=== PATIENT | female | born 1945 | race Caucasian/White ===

== ENCOUNTER 2022-05-30 14:42 | Emergency (ER) | payer MEDICARE ==
[~2022-05-30] VITALS: Ht 175.3 cm; Wt 70.3 kg
[~2022-05-30 14:42] MED LIST: ATORVASTATIN CA10 MG PO; DIOVAN80 MG PO; LEVOTHYROXINE100 MC1 IV; MELOXICAM15 MG PO
[2022-05-30] MEDS ORDERED: HYDRALAZINE HCL 20 MG/ML VIAL IV ONE (15:45)
[2022-05-30 16:36] LABS: BASOPHILS # (AUTO) 0.1 (0.0-0.1); BASOPHILS % 0.8 % (0.0-1.0); EOSINOPHILS # (AUTO) 0.1 (0.0-0.4); EOSINOPHILS % 1.6 % (0.0-6.0); HEMATOCRIT 41.2 % (34.2-44.1); HEMOGLOBIN 14.2 g/dL (12.0-16.0); LYMPHOCYTES # (AUTO) 2.2 (1.0-3.2); LYMPHOCYTES % 35.3 % (18.0-39.1); MEAN CORPUSCULAR HEMOGLOBIN 32.7 pg (28-32); MEAN CORPUSCULAR HGB CONC 34.5 g/dL (31-35); MEAN CORPUSCULAR VOLUME 94.9 fL (81-99); MONOCYTES # (AUTO) 0.8 (0.2-0.8); MONOCYTES % 12.2 % (4.4-11.3); NEUTROPHILS # (AUTO) 3.1 (2.1-6.9); NEUTROPHILS % 49.9 % (38.7-80.0); PLATELET COUNT 306 x10e3/uL (140-360); RED BLOOD COUNT 4.34 x10e6/uL (3.6-5.1); RED CELL DISTRIBUTION WIDTH 11.5 % (11.7-14.4)
[2022-05-30 16:57] LABS: ALBUMIN/GLOBULIN RATIO 1.2 (0.8-2.0); ANION GAP 16.8 mmol/L (8-16); CALCIUM 9.5 mg/dL (8.4-10.2); CREATININE, SERUM 0.81 mg/dL (0.57-1.11); POTASSIUM 3.8 mmol/L (3.5-5.1)
[2022-05-30 17:40] VITALS: BP 149/100
== END 2022-05-30 18:20 | disposition home or self-care (01) ==
LOC: ER 14:51
DX: R42 Dizziness and giddiness (principal); I10 Essential (primary) hypertension; E78.5 Hyperlipidemia, unspecified; E03.9 Hypothyroidism, unspecified; E78.00 Pure hypercholesterolemia, unspecified; R94.31 Abnormal electrocardiogram [ECG] [EKG]
CPT/HCPCS: 36415; 70450; 71045; 80053; 84484; 85025; 93005; 99284; J0360

== ENCOUNTER → 2022-08-05 | Outpatient (CLI) | payer MEDICARE ==
[~2022-08-05] MED LIST changes: +IOPAMIDOL 370 MG/ML 100 ML INFUS..BTL INJ ONE; +METOPROLOL TARTRATE INJ 1 MG/ML VIAL ONE; +NITROGLYCERIN 0.4 MG SUBL ONE; +SODIUM CHLORIDE 0.9% 100 ML ONE
[2022-08-05 08:33] LABS: CREATININE, SERUM 0.78 mg/dL (0.57-1.11)
== END ==
LOC: CT 07:39
PROVIDERS: ATTEND Internal Medicine Cardiovascular Disease
DX: I20.8 Other forms of angina pectoris (principal)
CPT/HCPCS: 36415; 75574; 82565; 84520; J7050; Q9967

== ENCOUNTER 2023-08-13 10:27 | Outpatient (RCR) | payer MEDICARE ==
[~2023-08-13 10:27] MED LIST changes: +ESTRADIOL1 MG PO; -IOPAMIDOL 370 MG/ML 100 ML INFUS..BTL INJ ONE; +MEDROL4 M2 PO; -METOPROLOL TARTRATE INJ 1 MG/ML VIAL ONE; -NITROGLYCERIN 0.4 MG SUBL ONE; +PANTOPRAZOLE SO40 MG PO; -SODIUM CHLORIDE 0.9% 100 ML ONE; +SYNTHROID100 MCG PO
== END 2023-08-16 ==
LOC: PT 10:27
PROVIDERS: ATTEND Physician Assistant
DX: M47.816 Spondylosis without myelopathy or radiculopathy, lumbar region (principal); M54.31 Sciatica, right side

== ENCOUNTER 2023-09-08 08:00 | Outpatient (RCR) | payer MEDICARE | END 2023-09-16 | LOC: PT 08:00 | PROVIDERS: ATTEND Physician Assistant | DX: M47.816 Spondylosis without myelopathy or radiculopathy, lumbar region (principal); M54.31 Sciatica, right side ==

== ENCOUNTER 2023-10-16 08:00 | Outpatient (RCR) | payer MEDICARE | END 2023-10-17 | LOC: PT 08:00 | PROVIDERS: ATTEND Physician Assistant | DX: M47.816 Spondylosis without myelopathy or radiculopathy, lumbar region (principal); M53.87 Other specified dorsopathies, lumbosacral region; M62.81 Muscle weakness (generalized); M54.50 Low back pain, unspecified; M54.51 Vertebrogenic low back pain ==

== ENCOUNTER → 2023-11-16 | Outpatient (RCR) | payer MEDICARE | LOC: PT 10-28 09:02 | PROVIDERS: ATTEND Physician Assistant | DX: M47.816 Spondylosis without myelopathy or radiculopathy, lumbar region (principal); M53.87 Other specified dorsopathies, lumbosacral region; M62.81 Muscle weakness (generalized); M54.50 Low back pain, unspecified; M54.51 Vertebrogenic low back pain ==

== ENCOUNTER 2023-12-02 09:00 | Outpatient (RCR) | payer MEDICARE | END 2023-12-17 | LOC: PT 09:00 | PROVIDERS: ATTEND Physician Assistant | DX: M47.816 Spondylosis without myelopathy or radiculopathy, lumbar region (principal); M53.87 Other specified dorsopathies, lumbosacral region; M62.81 Muscle weakness (generalized); M54.50 Low back pain, unspecified; M54.51 Vertebrogenic low back pain ==